=== PATIENT | female | born 1980 | race Caucasian/White ===

== ENCOUNTER 2021-05-30 12:30 | Emergency (ER) | payer OTHER ==
[2021-05-30 12:37] VITALS: BMI 29.2
[2021-05-30] MEDS ORDERED: CASIRIVIMAB (REGN10933) 600 MG, IMDEVIMAB (REGN10987) 600 MG in SODIUM CHLORIDE 100 ML IVPB ONE (15:00)
[2021-05-30] MEDS ORDERED: CASIRIVIMAB/IMDEVIMAB 10 ML in SODIUM CHLORIDE 100 ML IVPB ONE (16:00)
[2021-05-30 16:57] VITALS: BP 106/72; PULSE 81; TEMP 98.7
== END 2021-05-30 18:21 | disposition home or self-care (01) ==
LOC: JER 12:30 → JCOVINFU 12:30 → JER 18:21
DX: U07.1 COVID-19 (principal)
CPT/HCPCS: 99284-25; M0240; Q0240